=== PATIENT | male | born 1950 | race Two or more races ===

== ENCOUNTER 2021-02-25 21:45 | Emergency (ER) | payer BC, MEDICARE, OTHER ==
[~2021-02-25] VITALS: Ht 190.5 cm; Wt 117.0 kg
[~2021-02-25 21:45] MED LIST: ASPI-1497 PO; Amiodarone PO; BIDIL PO; BUME2TAB7 PO; CARV40CP PO; CHOL100046 PO; COLC0.6T66 PO; FEBU40TA PO; KLOR CON EF PO; SPIR25TA6 PO; Slow-Mag PO; VALS160T2 PO
[2021-02-25 22:00] VITALS: BP 108/75
[2021-02-25] MEDS ORDERED: SODIUM POLYSTYRENE SULFONATE 15 G/60 ML BOT PO ONE (22:15)
[2021-02-25] MEDS ORDERED: SODI15OR5 MT (22:26)
== END 2021-02-25 23:45 | disposition home or self-care (01) ==
LOC: ER 21:45
DX: E87.5 Hyperkalemia (principal); I12.9 Hypertensive chronic kidney disease with stage 1 through stage 4 chronic kidney disease, or unspecified chronic kidney disease; N18.9 Chronic kidney disease, unspecified; I48.92 Unspecified atrial flutter; Z79.01 Long term (current) use of anticoagulants; Z95.810 Presence of automatic (implantable) cardiac defibrillator; Z79.82 Long term (current) use of aspirin
CPT/HCPCS: 93005; 99283